=== PATIENT | male | born 1945 | race Caucasian/White ===

== ENCOUNTER 2021-01-19 07:04 | Outpatient (CLI) | payer MEDICARE, BC, SELFPAY ==
--- NOTE | 2021-01-19 08:20 | USCV_ITS ---
Cesar Kahlil Age: 75 Gender: M : 1945 Exam Date: 01/19/2021 08:27 Ordering Phys: Jasen Melgar MD Technologist: Allie Matta Exam Location: [facility] – [place] Indication: Family history of AAA HISTORY: Diameter (cm) AP x Transverse x Length Velocity (cm/s) Waveform Prox Aorta: 2.47 x 2.43 x 74.60 Mid Aorta: 1.64 x 1.87 x 72.80 Distal Aorta: 1.57 x 1.57 x 101.60 Right Iliac Prox: 1.00 x 0.86 x 134.30 Left Iliac Prox: 1.06 x 0.93 x 113.90 Stent Prox Landing x x Aneurysmal Sac Max x x Lt Lat Sac Dim Rt Lat Sac Dim Stent Dist Landing x x Right Iliac Stent x x Left Iliac Stent x x Right Renal Art Left Renal Art FINDINGS: Comparison: none available. No evidence of abdominal aortic or bilateral iliac aneurysm. Ectatic abdominal aorta with evidence of atherosclerotic plaque noted. CONCLUSIONS No AAA. Mild atherosclerosis. Dr. Betzaida Houston DO (Electronically Signed) Final Date: 19 Jan 2021 10:05 S
== END 2021-01-19 07:05 | disposition home or self-care (01) ==
LOC: RAD 07:20
PROVIDERS: Visit Provider Family Medicine
DX: I70.0 Atherosclerosis of aorta (principal); I77.811 Abdominal aortic ectasia; Z82.49 Family history of ischemic heart disease and other diseases of the circulatory system
CPT/HCPCS: 93978

== ENCOUNTER → 2022-07-06 09:08 | Outpatient (BNVA) | payer MEDICARE, BC, SELFPAY | PROVIDERS: PCP Family Medicine; Visit Provider Family Medicine | DX: Z00.00 Encounter for general adult medical examination without abnormal findings (principal); E80.4 Gilbert syndrome; C61 Malignant neoplasm of prostate; E87.8 Other disorders of electrolyte and fluid balance, not elsewhere classified; Z13.220 Encounter for screening for lipoid disorders; G47.33 Obstructive sleep apnea (adult) (pediatric) | CPT/HCPCS: 80053; 80061; 85025 ==

== ENCOUNTER → 2023-06-29 09:10 | Outpatient (BNVA) | payer MEDICARE, SELFPAY | PROVIDERS: PCP Family Medicine; Visit Provider Family Medicine | DX: E80.4 Gilbert syndrome (principal); Z00.00 Encounter for general adult medical examination without abnormal findings; Z13.220 Encounter for screening for lipoid disorders | CPT/HCPCS: 80053; 80061; 85025 ==

== ENCOUNTER → 2024-06-27 09:07 | Outpatient (BNVA) | payer MEDICARE, SELFPAY | PROVIDERS: PCP Family Medicine; Visit Provider Family Medicine | DX: C61 Malignant neoplasm of prostate (principal); G47.33 Obstructive sleep apnea (adult) (pediatric); Z00.00 Encounter for general adult medical examination without abnormal findings | CPT/HCPCS: 80053; 80061; 85025 ==

== ENCOUNTER → 2025-07-01 08:34 | Outpatient (BNVA) | payer MEDICARE, SELFPAY | PROVIDERS: PCP Family Medicine; Visit Provider Family Medicine | DX: Z00.00 Encounter for general adult medical examination without abnormal findings (principal); G47.33 Obstructive sleep apnea (adult) (pediatric) | CPT/HCPCS: 80053; 80061; 85025 ==